=== PATIENT | male | born 1990 | race African-American/Black ===

== ENCOUNTER 2024-01-04 13:37 | Emergency (ER) | payer MEDICAID ==
[~2024-01-04] VITALS: Ht 172.7 cm; Wt 70.0 kg
[2024-01-04 13:40] VITALS: BP 135/109; PULSE 100; RESP 18; TEMP 98.4; O2SAT 99
[2024-01-04] MEDS ORDERED: BO1 TP (13:48)
== END 2024-01-04 16:11 | disposition home or self-care (01) ==
LOC: ER 13:37
DX: S50.312A Abrasion of left elbow, initial encounter (principal); F31.9 Bipolar disorder, unspecified; W45.8XXA Other foreign body or object entering through skin, initial encounter; Y93.89 Activity, other specified; Y92.89 Other specified places as the place of occurrence of the external cause; Y99.8 Other external cause status
CPT/HCPCS: 99283